=== PATIENT | female | born 1935 | race Caucasian/White ===

== ENCOUNTER 2024-07-24 20:17 | Emergency (ER) | payer MEDICARE, BC ==
[2024-07-24] MEDS ORDERED: Lidocaine 1% w/Epinephrine 1:100K 20 ML VIAL ONE (20:59)
[2024-07-24] MEDS ORDERED: Bacitracin 1 PK ONE (21:56)
== END 2024-07-24 22:16 | disposition home or self-care (01) ==
LOC: MADERS 20:17
DX: S81.811A Laceration without foreign body, right lower leg, initial encounter (principal); I10 Essential (primary) hypertension; W22.8XXA Striking against or struck by other objects, initial encounter
CPT/HCPCS: 12002; 99282